=== PATIENT | female | born 1960 | race Caucasian/White ===

== ENCOUNTER 2025-07-05 13:52 | Outpatient (AMB) | payer OTHER, SELFPAY ==
--- NOTE | 2025-07-05 13:25 | A.OFFPC_ITS ---
Vital Signs 07/05/25 14:01 Height 5 ft 4 in Weight 156 lb 2 oz BMI 26.8 BP 130/80 Blood Pressure Location Lt brachial Position Sitting Respiration 16 Pulse 68 Pulse Source Pulse Oximeter Pulse Oximetry (%) 98 Intake Visit Reasons: Annual Traveling Operator Required: No Accompanied by: Self / Same As Patient Allergies codeine Allergy (Intermediate, Verified 07/05/25 14:03) Vomiting infliximab (From Remicade) Allergy (Intermediate, Verified 07/05/25 14:03) Shortness of Breath Medication List - Last Reconciled 07/05/25 by Isabel Min MD celecoxib 200 mg PO BID cholecalciferol (vitamin D3) 25 mcg PO DAILY etanercept (Enbrel SureClick) mg subcut omeprazole 40 mg PO BID vitamin E (dl, acetate) 45 mg PO DAILY Tobacco use date assessed: 07/05/25 Fall risk assessment: No Falls in past year Last assessed Fall Risk: 07/05/25 Dental Screening Dental Screen Date: 07/05/25 Did you have a dental visit in the last 12 months?: No Did you have a dental problem in the last 6 months where you did not have access to dental care?: No Was dental information given to patient?: Patient has dentist HPI HPI Comments History of Present Illness Details The patient is a 65-year-old female presenting with a request to re-establish care and for a physical exam. Rheumatoid arthritis- on enbrel Lower back spasm: Recent spasms began after she bent over. Treated with ice, Tylenol, lidocaine patches. Symptoms continue. Menopausal symptoms: Discontinued Prempro at recommendation of physician practice coordinator, experienced hot flashes, aches since discontinuation. Started Estroven, noted partial relief of flashes. Care Team Dr. Lewis-associate professor of english Dr. Bree Chatman- [facility] last mammogram done at [facility]- had to have recall, repeat planned for November per patient last colonoscopy 2024- normal per patient pt to schedule bone density with associate professor of english (pt will have facilities send over resul ts) Social History: - , employed - Spouse with cardiovascular issues, inc luding bypass surgery in December, has been stressed Review of Systems - Cardiovascular: no chest pain - Gastrointestinal: Denies abdominal vaibhav n - Musculoskeletal: Reports lower back sp asms and leg pain. - Neurological: Denies drowsiness with m uscle relaxers discussed. - Endocrine: Reports hot flashes and gen eral body aches. Physical Exam - Vitals- Blood pressure 130/80. - General- Patient in no acute distress. - Respiratory- Clear breath sounds, no w heezing. - Cardiovascular- Regular heart rhythm, grade II/ soft murmur across precordium - Abdomen: SNTD, +BS - Extremities: trace edema bilaterally - Musculoskeletal- pain on palpation of lumbar paraspinals - Neurological- No deficits noted, activ e recruit. Assessment and Plan 1. Rheumatoid arthritis - Continue self-stretching and consider water therapy. - Continue enbrel and celebrex 2. Lower back spasm - Prescribe cyclobenzaprine 5 mg at even ing. 3. Menopausal symptoms - Consider gabapentin, start 100 mg post -back pain resolution and completion of cyclobenzaprine trial Discussion Notes During the visit, I addressed the patient's concerns regarding musculoskeletal discomfort. We discussed using cyclobenzaprine for immediate back spasm relief and later introducing gabapentin for menopausal symptoms. I explained the potential side effects, highlighting cyclobenzaprine's sedative effects, advising evening administration. I recommended ongoing bone health evaluation. Also discussed gabapentin and its potential benefit in helpign to reduce musculoskeletal pain. We reviewed the medication plan, agreed on monitoring therapy effectiveness, and I endorsed lifestyle changes like water therapy to help with pain management. Future labs will clarify any endocrine contributions to symptoms. [facility] Medical History (Updated 07/05/25 @ 14:36 by Isabel Min MD) Vitamin D deficiency Hot flashes Routine adult health maintenance Back pain Rheumatoid arthritis Social History Housing: House Patient Tobacco Use Status: Former Tobacco user Years Smoked: few years as a teenager e-Cigarette/Vaping Use: Never Used service: No Current occupational status: employed Current occupation: Payroll and applications administrator Questionnaire PHQ-9 Over the last 2 weeks, how often have you been bothered by any of the following problems? 1. Little interest or pleasure in doing things: not at all 2. Feeling down, depressed, or hopeless: not at all 3. Trouble falling or staying asleep, or sleeping too much: not at all 4. Feeling tired or having little energy: not at all 5. Poor appetite or overeating: not at all 6. Feeling bad about yourself - or that you are a failure or have let yourself or your family down: not at all 7. Trouble concentrating on things, such as reading the newspaper or watching television: not at all 8. Moving or speaking so slowly that other people could have noticed. Or the opposite - being so fidgety or restless that you have been moving around a lot more than usual: not at all 9. Thoughts that you would be better off or of hurting yourself in some way: not at all Total score: 0 Source: Developed by Drs. Brandon Owens, Reina Reyes, Nam Marx and colleagues, with an educational cinthia from [employer] Thrive Questionnaire What is your living situation today?: I have a steady place to live Within the past 12 months, did the food you bought not last and you didn't have the money to get more?: Never true Within the past 12 months, did you worry whether your food would run out before you got money to buy more?: Never true Do you have trouble paying for medicines?: No Do you have trouble getting transportation to medical appointments?: Yes Do you have trouble paying your heating and electricity bill?: No Do you have trouble taking care of your child, family member or friend?: No Do you have trouble with day-to-day activities such as bathing, preparing meals, shopping, managing finances, etc.?: No Are you currently unemployed and looking for a job?: No Are you interested in more education?: No THRIVE Score: 1 AUDIT C Alcohol Use Questionnaire (AUDIT-C) 1. How often do you have a drink containing alcohol?: Never 3. How often do you have six or more drinks on one occasion?: Never Total Score: 0 PATRICIA-7 AMB Questionnaire PATRICIA-7 Feeling nervous, anxious, or on edge: 0 = Not at all Not being able to stop or control worryin = Not at all Worrying too much about different things: 0 = Not at all Trouble relaxin = Not at all Being so restless that it is hard to sit still: 0 = Not at all Becoming easily annoyed or irritable: 0 = Not at all Feeling afraid as if something awful might happen: 0 = Not at all Total PATRICIA-7 score (0-4 normal; 5-9 mild; 10-14 moderate; 15-21 severe): 0 Source: Developed by Drs. Brandon Owens, Reina Reyes, Nam Marx and colleagues, with an educational cinthia from [employer] Physical exam (Primary Care) Vital Signs: Last Vital Signs Pulse 68 07/05/25 14:01 Resp 16 07/05/25 14:01 BP 130/80 07/05/25 14:01 Pulse Ox 98 07/05/25 14:01 BMI result Body Mass Index 26.8 Tobacco/Smoking Status: Tobacco use Status Tobacco use date assessed 07/05/25 07/05/25 13:27 Patient Tobacco Use Status Former Tobacco user 07/05/25 14:09 e-Cigarette/Vaping Use Never Used 07/05/25 14:09 PHQ-9: PHQ-9 Score PHQ-9: Total score 0 07/05/25 14:57 Coding Level of Care Code Est Pt Prev Care >65y(89520) Diagnoses Hot flashes R23.2 Rheumatoid arthritis M06.9 Back pain M54.9 Routine adult health maintenance Z00.00 Assessment & Plan Assessment & Plan (1) Hot flashes: Code(s): R23.2 - Flushing Category: Medical (2) Rheumatoid arthritis: Code(s): M06.9 - Rheumatoid arthritis, unspecified Category: Medical (3) Back pain: Code(s): M54.9 - Dorsalgia, unspecified Category: Medical (4) Routine adult health maintenance: Code(s): Z00.00 - Encounter for general adult medical examination without abnormal findings Category: Medical Plan - Prescribe cyclobenzaprine 5 mg nightly. - Initiate gabapentin 100 mg after back pain relief for vasomotor symptoms post menopause - Continue Celebrex, Estroven. - Implement stretching, consider water therapy. - Monitor for osteoporosis, schedule bone density test with associate professor of english. - Complete fasting labs for metabolic and thyroid assessment. - Continue lidocaine patches, Tylenol. Orders: Orders Vitamin D 25-OH Total Today E55.9 - Vitamin D deficiency, unspecified Complete Blood Count Auto Diff Today M06.9 - Rheumatoid arthritis, unspecified, M54.9 - Dorsalgia, unspecified Lipid Panel Today Z00.00 - Encounter for general adult medical examination without abnormal findings Comprehensive Met. Panel Today M06.9 - Rheumatoid arthritis, unspecified, Z00.00 - Encounter for general adult medical examination without abnormal findings TSH reflex Free T4 Today R23.2 - Flushing Medications: New gabapentin 100 mg PO BEDTIME 30 caps 3RF cyclobenzaprine 5 mg PO BEDTIME PRN 14 tabs 3RF muscle spasm Patient Instructions: - Take cyclobenzaprine in the evening with dinner. - Start gabapentin only after back pain is managed. - Continue current pain medications. - Engage in self-guided stretching; consider water therapy. - Schedule fasting labs as discussed. - Monitor for side effects. - Notify about any unmanageable symptoms or issues.
[2025-07-05 14:01] VITALS: BP 130/80; PULSE 68; RESP 16; O2SAT 98; BMI 26.8
--- OUTSIDE RECORDS SUMMARY | 2025-07-05 17:31 | XMS_ITS | Clinical Summary ---
Author Organization [facility] [address] [facility] Address [address] [place] [address] Phone Care Team Providers Care Termite Exterminator Name Role Phone Isabel Min MD Primary Care Provider [phone] Encounters Date Type Department Care Team Description 05/27/2025 2:16 PM EDT - 05/27/2025 11:59 PM EDT [facility] [address] [phone] Breast calcifications Discharge Disposition: Home or Self Care 05/03/2025 3:09 PM EDT - 05/03/2025 11:59 PM EDT Hospital [facility]counter [facility] [address] [phone] Encounter for screening mammogram for malignant neoplasm of breast Discharge Disposition: Home or Self Care from Last 3 Months Family History Medical History Relation Name Comments Breast cancer Father's Sister Relation Name Status Comments Father's Sister Alive Social History Tobacco Use Types Packs/Day Years Used Date Smoking Tobacco: Never Assessed Comments No Sex and Gender Information Value Date Recorded Sex Assigned at Not on file Legal Sex Female 2:24 AM EST Gender Identity Not on file Sexual Orientation Not on file Obstetrics History Last Filed Vital Signs Vital Sign Reading Time Taken Comments Blood Pressure - - Pulse - - Temperature - - Respiratory Rate - - Oxygen Saturation - - Inhaled Oxygen Concentration - - Weight 70.3 kg (155 lb) 05/03/2025 3:19 PM EDT Height 165.1 cm (5' 5 ) 05/03/2025 3:19 PM EDT Body Mass Index 25.79 05/03/2025 3:19 PM EDT Plan of Treatment Upcoming Encounters Date Type Department Care Team (Late st Contact Info) Description 12/06/2025 2:30 PM EDT [facility]ointment [facility] [address] [phone] Health Maintenance Due Date Last Done Comments DTaP,Tdap,and Td Vaccines (1 - Tdap) 1979 Zoster Vaccines (1 of 2) 2010 Pneumococcal Vaccine: 50+ Years (2 of 2 - PCV) 06/10/2021 06/10/2020 Hepatitis C Screening 08/12/2022 Osteoporosis Screening (Bone Density Screening) 08/12/2022 Social Influencers of Health Screening 08/12/2022 Depression Screening 09/09/2024 Falls Risk Assessment 2025 COVID-19 Vaccine ( season) 2025 07/05/2022, 09/11/2021, 12/21/2020, Additional history exists Influenza Vaccine (#1) 2025 Breast Cancer Screening 05/27/2027 05/27/20, 05/03/2025, 05/01/2024, Additional history exists Cervical Cancer Screening: Pap Smear 11/11/2027 11/10/2024 Colorectal Cancer Screening: Colonoscopy 10/21/2034 10/21/2024 RSV Immunization Adult Patients (1 - 1-dose 75+ series) 2035 HIB Vaccines Aged Out No longer eligi ble based on patient's age to complete this topic HPV Vaccines Aged Out No longer eligi ble based on patient's age to complete this topic Hepatitis A Vaccines Aged Out No long er eligible based on patient's age to complete this topic Hepatitis B Vaccines Aged Out No long er eligible based on patient's age to complete this topic IPV Vaccines Aged Out No longer eligi ble based on patient's age to complete this topic MMR Vaccines Aged Out No longer eligi ble based on patient's age to complete this topic Meningococcal ACWY Vaccine Aged Out N o longer eligible based on patient's age to complete this topic Meningococcal B Vaccine Aged Out No l onger eligible based on patient's age to complete this topic RSV Immunization Patients Under 20 months Aged Out No longer eligible based on patient's age to complete this topic Varicella Vaccines Aged Out No longer eligible based on patient's age to complete this topic Procedures Procedure Name Priority Date/Time Associated Diagnosis Comments MG MAMMO DIAGNOSTIC ADDL VIEWS RIGHT Routine 05/27/2025 2:42 PM EDT Breast calcifications MG MAMMO DIGITAL SCREENING W GARY BILAT Routine 05/03/2025 3:25 PM EDT Encounter for screening mammogram for malignant neoplasm of breast PAP SMEAR Routine 11/10/2024 12:00 AM EST Encounter for gynecological examination (general) (routine) without abnormal findings EXTERNAL COLONOSCOPY REPORT Routine 10/21/2024 4:06 PM EST from Last 3 Months or Most Recently Relevant to Health Maintenance Results * MG Mammo Diagnostic Addl Views Right (05/27/2025 2:42 PM EDT) Anatomical Region Laterality Modality Breast Right Mammography 05/27/2025 2:37 PM EDT Impressions 05/27/2025 3:06 PM EDT Right breast calcifications. Recommend follow-up diagnostic mammography in 6 months to include magnification views. Findings and recommendations were conveyed to the patient. BI-RADS CATEGORY: 3 - PROBABLY BENIGN RECOMMENDATION: Short Interval Follow-up is recommended for the right breast in 6 months. [facility]amm[facility] Location: [facility], [address] [place] [address], [facility], . -------- FINAL REPORT -------- Dictated By: Lori Villela Dictated Date: 05/27/2025 14:37 ET Assigned Physician: Lori Villela Reviewed and Electronically Signed By: Lori Villela Signed Date: 05/27/2025 15:06 ET Workstation ID: [id number] Transcribed By: Self Edit Transcribed Date: 05/27/2025 14:41 ET Narrative 05/27/2025 3:06 PM EDT CLINICAL: 65 years old, Female, presents for call back from screening for right breast calcifications. COMPARISON: Multiple prior studies dating back to 2019 FINDINGS: MAMMOGRAPHY TECHNIQUE: Unilateral right CC, and LM magnification views were obtained digitally with 2-D mammogram. Computer-aided detection was utilized in evaluation of this exam (CAD). There are scattered and loosely grouped calcifications in the inferior breast. No suspicious cluster. Stable biopsy marker. BREAST DENSITY: B - There are scattered areas of fibroglandular density. us Isabel Min MD IMG BI PROCEDURES Final Re sult * (ABNORMAL) MG Mammo Digital Screening w Gary bilat (05/03/2025 3:25 PM EDT) Anatomical Region Laterality Modality Breast Bilateral Mammography 05/03/2025 3:58 PM EDT Impressions 05/03/2025 4:10 PM EDT Incompletely characterized right breast calcifications. Recommend diagnostic right mammography including spot magnified views in multiple projections. A negative mammogram in the presence of a clinically suspicious palpable abnormality does not preclude the possibility of malignancy or alter the indications for biopsy. ASSESSMENT: BI-RADS 0: INCOMPLETE - need additional imaging evaluation and/or prior mammograms for comparison RECOMMENDATION(S): 1: Special mammographic view(s) needed RIGHT [facility] [address], [address] -------- FINAL REPORT -------- Dictated By: Jj Gil Dictated Date: 05/03/2025 15:58 ET Assigned Physician: Jj Gil Reviewed and Electronically Signed By: Jj Gil Signed Date: 05/03/2025 16:10 ET Workstation ID: [id number] Transcribed By: Self Edit Transcribed Date: 05/03/2025 15:58 ET Narrative 05/03/2025 4:10 PM EDT EXAM: SCREENING MAMMOGRAPHY, BILATERAL HISTORY: SCREENING. Paternal aunt diagnosed with breast cancer age 55. COMPARISON: 05/01/24, 06/26/22, 06/20/21 TECHNIQUE: Synthesized CC and MLO projections of each breast. Tomosynthesis of each breast in the CC and MLO projections. ADDITIONAL IMAGING: None Computer-aided detection was employed with the iCAD ProFound AI 3-D. TISSUE DENSITY: There are scattered areas of fibroglandular density. (BI-RADS category B) FINDINGS: There is greater fibroglandular density in the right breast than left which is unchanged. RIGHT BREAST: There are incompletely characterized calcifications in the 6 o'clock position 3 cm from the right nipple. No additional suspicious right breast findings LEFT BREAST: No suspicious mass. No suspicious calcification. No distortion. No additional suspicious left breast findings Zuly Alejandre MD IMG BI PROCEDURES Final Result * Pap smear (11/10/2024 12:00 AM EST) Interpretation Negative for intraepithelial lesion or malignancy 11/16/2024 4:12 PM EDT [facility] Clinical Information 2021 ASCUS NEG HPV 11/16/2024 4:[address] [facility] General Categorization Negative 11/16/2024 4:[address] [facility] Specimen Adequacy Satisfactory for evaluation, endocervical/barrett sformation zone component present [facility] Pap Methodology Liquid Based Pap Test 11/16/2024 4:[address] [facility] Disclaimer The Pap test is a screening test which carries an inherent false negative rate. These test results should be correlated with the patient's clinical findings and history. This Pap test was processed using an automated screening system. Technical cytopathology services provided by [facility], at [address] [place] [address] (CLIA # [id number]/Daniel Li MD, Head Boys Golf Coach.) 11/16/2024 4:[address] [facility] Console Pap Interpretation Reported 11/16/2024 4:[address] [facility] Brushing/Spatula Cervix uteri structure / Unknown 11/10/2024 11/11/2024 7:21 AM EST Zuly Alejandre MD LAB CYTOLOGY ORDERABLES Final Result [facility] [address] [place] [address], * External Colonoscopy Report (10/21/2024 4:06 PM EST) Anatomical Region Laterality Modality Endoscopy us Historical Provider GI~PROCEDURE ORDERABLES F inal Result from Last 3 Months or Most Recently Relevant to Health Maintenance Insurance [facility] YENIFER GARCIA [id number] Care Teams Termite Exterminator Relationship Specialty Start Date End Date Isabel Min MD [address] [place] [address] PCP - General Internal Medicine 09/15/24
--- OUTSIDE RECORDS SUMMARY | 2025-07-05 17:31 | XMS_ITS | Encounter Summary ---
Author Organization [facility] Address [address] [place] [address] Care Team Providers Care Inventory Accountant Name Role Phone Isabel Min MD Primary Care Provider [phone]- [phone] Encounter Details Date Type Department Care Team (Latest Contact Info) Description 11/11/2024 Lab Requisition [facility] - Main Lab [address] [place] [address] Zuly Alejandre MD [address] [phone] Encounter for gynecological examination (general) (routine) without abnormal findings Social History Tobacco Use Types Packs/Day Years Used Date Smoking Tobacco: Never Assessed Comments Unknown Sex and Gender Information Value Date Recorded Sex Assigned at Not on file Legal Sex Female 2:24 AM EST Gender Identity Not on file Sexual Orientation Not on file documented as of this encounter Plan of Treatment Upcoming Encounters Date Type Department Care Team (Late st Contact Info) Description 12/06/2025 2:30 PM EDT [facility]ointment [facility] [address] [place] [phone] documented as of this encounter Procedures Procedure Name Priority Date/Time Associated Diagnosis Comments PAP SMEAR Routine 11/10/2024 12:00 AM EST Encounter for gynecological examination (general) (routine) without abnormal findings documented in this encounter Results * Pap smear (11/10/2024 12:00 AM EST) Interpretation Negative for intraepithelial lesion or malignancy 11/16/2024 4:12 PM EDT [facility] Clinical Information 2021 ASCUS NEG HPV 11/16/2024 4:12 PM EDT [facility] General Categorization Negative 11/16/2024 4:12 PM EDT [facility] Specimen Adequacy Satisfactory for evaluation, endocervical/barrett sformation zone component present 11/16/2024 4:12 PM EDT [facility] Pap Methodology Liquid Based Pap Test 11/16/2024 4:12 PM EDT [facility] Disclaimer The Pap test is a screening test which carries an inherent false negative rate. These test results should be correlated with the patient's clinical findings and history. This Pap test was processed using an automated screening system. Technical cytopathology services provided by [facility], at [address] [place] [address] (CLIA # [id number]/Daniel Li MD, Machine Setter Sheet Metal.) 11/16/2024 4:12 PM [facility] Console Pap Interpretation Reported 11/16/2024 4:12 PM [facility] Brushing/Spatula Cervix uteri structure / Unknown 11/10/2024 11/11/2024 7:21 AM EST us Zuly Alejandre MD LAB CYTOLOGY ORDERABLES Final Result [facility] [address] [place] [address], documented in this encounter Visit Diagnoses Diagnosis Encounter for gynecological examination (general) (routine) without abnormal findings documented in this encounter Care Teams Inventory Accountant Relationship Specialty Start Date End Date Isabel Min MD [address] [place] [address] PCP - General Internal Medicine 09/15/24 documented as of this encounter
== END 2025-07-05 14:48 | disposition home or self-care (01) ==
LOC: HO.HMCHD 13:52
PROVIDERS: PCP Internal Medicine; Visit Provider Internal Medicine
DX: Z00.00 Encounter for general adult medical examination without abnormal findings (principal); R23.2 Flushing; M06.9 Rheumatoid arthritis, unspecified; M54.9 Dorsalgia, unspecified

== ENCOUNTER 2025-07-16 08:03 | Outpatient (REF) | payer OTHER, SELFPAY ==
[2025-07-16 13:16] LABS: MANUAL DIFF FLAG NO
[2025-07-16 13:50] LABS: Alanine Aminotransferase 16 U/L (0-31); Albumin Level 4.4 g/dL (3.5-5.0); Alkaline Phosphatase 62 U/L (39-117); Anion Gap 10 (12-20); Aspartate Amino Transferase 31 U/L (5-31); Blood Urea Nitrogen 15 mg/dL (9-16); Calcium 9.8 mg/dL (8.4-10.2); Carbon Dioxide 28 mmol/L (22-29); Chloride 107 mmol/L (96-108); Cholesterol 173 mg/dL (<200); Estimated Glomerular Filt Rate > 60; HDL Cholesterol 52 mg/dL (>40); Potassium 4.3 mmol/L (3.3-5.1); Sodium 141 mmol/L (135-145); Total Protein 7.8 g/dL (6.5-8.0); Triglycerides 87 mg/dL (<150)
[2025-07-16 13:51] LABS: Hematocrit 38.7 % (37.0-47.0); Hemoglobin 12.6 g/dl (12.0-16.0); Imm Gran Abs Auto 0.01 X10*3/uL (0.00-0.03); Imm Gran Pct Auto 0.2 % (0.0-0.4); Lymphocytes Absolute Auto 3.5 X10*3/uL (1.2-4.9); Mean Corpuscular HGB Conc 32.6 g/dl (31.0-35.0); Mean Corpuscular Hemoglobin 30.4 pg (27.0-33.0); Mean Corpuscular Volume 93.5 fL (80.0-98.0); NRBC Abs Auto 0.000 X10*3/uL (0.0-0.012); NRBC Pct Auto 0.0 /100WBC (0.0-0.2); Platelet Count 206 X10*3/uL (160-400); Red Blood Count 4.14 X10*6/uL (4.20-5.50); White Blood Count 6.2 X10*3/uL (4.8-10.8)
== END 2025-07-16 08:04 | disposition home or self-care (01) ==
LOC: HO.HKASLDS 08:03
PROVIDERS: PCP Internal Medicine; Visit Provider Internal Medicine
DX: Z00.00 Encounter for general adult medical examination without abnormal findings (principal); M06.9 Rheumatoid arthritis, unspecified; M54.9 Dorsalgia, unspecified; R23.2 Flushing; E55.9 Vitamin D deficiency, unspecified; Z13.29 Encounter for screening for other suspected endocrine disorder; Z13.6 Encounter for screening for cardiovascular disorders
CPT/HCPCS: 36415; 80053; 80061; 82306; 84443; 85025